=== PATIENT | female | born 1985 | race Caucasian/White ===

== ENCOUNTER 2017-07-27 17:51 | Emergency (ER) | payer MEDICAID, SELFPAY ==
[2017-07-27 17:52] VITALS: BP 120/85; PULSE 127; RESP 16; TEMP 36.9; O2SAT 98; BMI 41.1
--- NOTE | 2017-07-27 18:24 | CT_ITS ---
STUDY: CT ABDOMEN AND PELVIS WITH CONTRAST REASON FOR EXAM: Female, 31 years old. Left upper quadrant pain RADIATION DOSAGE (If Supplied By Facility): CTDIvol = ( 15.41 ) mGy, DLP = ( 1223.49 ) mGycm TECHNIQUE: Transaxial images were obtained from the dome of the diaphragm to the symphysis pubis without oral contrast. 100 ml of Isovue 300 contrast was administered. Sagittal and coronal images were reconstructed. Individualized dose optimization techniques were used for this CT. COMPARISON: May 01, 2015 FINDINGS: There is a tiny left pleural effusion and left lower lobe atelectasis. The visualized portions of the heart are within normal limits. Liver is mildly fatty infiltrated without mass or bile duct dilatation. Gallbladder not visualized consistent with cholecystectomy. Spleen is enlarged and homogeneous attenuation . There is mild peripancreatic edema in association with a pseudocyst in the tail of the pancreas measuring 4.65 x 3.08 x 3.94 cm. Normal bilateral adrenal glands. Normal right kidney. Normal left kidney. Normal visualized stomach. Normal small intestine. Normal colon. The appendix is visualized and appears normal. Normal abdominal aorta. Normal inferior vena cava. Normal retroperitoneum. Incompletely distended diffusely thick-walled bladder likely of no significance. There are cystic changes within the adnexa bilaterally not atypical for age Normal abdominal wall. Normal osseous structures. CT/Abdomen/Pelvis W IV Cont ONLY IMPRESSION: Findings consistent with acute pancreatitis and pseudocyst in the tail of the pancreas measuring approximately 4.65 x 3.08 x 3.94 cm Nonspecific fatty infiltration of the liver and splenomegaly. Status post cholecystectomy Electronically Signed: Dario Reece MD at 20:01 EDT , Service support ,
[2017-07-27] MEDS: Ketorolac 30 MG/ML Syringe IV (18:48)
[2017-07-27] MEDS: 0.9% Normal Saline 1,000 ML 1000 ML IV (18:48)
[2017-07-27] MEDS: Ondansetron 4 MG/2 ML Vial IV (18:50)
[2017-07-27 18:55] VITALS: RESP 18; O2SAT 98
[2017-07-27 19:07] LABS: ALB/GLOB Ratio 0.8 RATIO (0.9-2.4); AST(SGOT) 10 U/L (15-37); Alanine Aminotransfer ALT/SGPT 12 U/L (13-56); Albumin, Serum 3.4 g/dL (3.2-5.0); Alkaline Phosphatase 63 U/L (45-117); Anion Gap 9 (5-15); BUN 7 mg/dL (7-18); BUN/Creat Ratio 10.7 RATIO (10-20); Chloride 104 mmol/L (98-107); Creatinine, Serum 0.66 mg/dL (0.55-1.02); EST Glomerular Filtration Rate 111 mL/min (>60); Est Glom Filt Rate - Afr Amer 134 mL/min (>60); Estimated Creatinine Clearance 111.13 ml/min; Globulin 4.4 g/dL (2.2-4.2); Glucose 80 mg/dL (74-106); Lipase 355 U/L (73-393); Potassium 3.7 mmol/L (3.5-5.1); Protein, Total 7.8 g/dL (6.4-8.2); Sodium Level 138 mmol/L (136-145)
[2017-07-27 19:10] LABS: Absolute Lymphocyte Count 1.38 X10^3/ul (0.83-4.51); Absolute Neutrophil Count 6.4 X10^3/uL (2.0-7.7); Basophil# 0.01 X10^3/uL; Basophil% 0.1 % (0-1); Eosinophil# 0.05 X10^3/uL; Eosinophils% 0.6 % (0-5); Hematocrit 38.6 % (37-47); Hemoglobin 12.5 g/dl (12.0-15.0); Lymphocyte # 1.38 X10^3/ul (4.0); Lymphocyte % 16.7 % (19-41); Mean Corp Hgb Conc 32.4 g/gl (32-36); Mean Corpuscular Hgb 28.8 pg (27.0-32.0); Mean Corpuscular Volume 88.9 fL (81-99); Mean Platelet Vol. 10.3 fl (6.2-12.0); Monocyte# 0.43 X10^3/uL; Monocyte% 5.2 % (0-10); Neutrophil # 6.39 X10^3/uL (2.7-7.7); Neutrophil % 77.3 % (47-70); Platelet Count 139 K/mm3 (150-450); RBC Distribution Width CV 13.2 % (11.6-14.6); RBC Distribution Width SD 43.2 fl (35.1-43.9); Red Blood Count 4.34 M/mm3 (4.2-5.4); White Blood Count 8.3 K/mm3 (4.4-11.0)
[2017-07-27 19:16] LABS: POSITIVE COUNT NO; POSITIVE DIFFERENTIAL NO; POSITIVE MORPHOLOGY NO
--- NOTE | 2017-07-27 19:22 | NURSING ---
PT STATED THAT SHE IS 100% NOT AND WAS OKAY TO GO DOWN AND GET A CAT SCAN. CLEARED BY THE DOCTOR.
--- NOTE | 2017-07-27 20:39 | ED.DCSUM_ITS ---
- ER Visit Summary Date of Service: 07/27/17 Chief Complaint: Abdominal pain History of Present Illness: The patient is a 31 F who complains of moderate sharp left upper quadrant abdominal pain that is been present for about 5 days. 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 She has had a cholecystectomy. She developed pancreatic pseudocyst which she has had drained on a couple of occasions. She last had any procedure imaging last year. She denies any vomiting but does have some nausea. She had 2 episodes of loose stool. She denies fevers. Physical Examination: Initial heart rate 127 vitals otherwise unremarkable Patient resting comfortably and does not appear to be in any distress Moist mucous membranes Heart regular rhythm slightly tachycardic at the time of initial exam Lungs are clear Abdomen soft nondistended with mild left upper quadrant tenderness no guarding no rebound Test Results: CBC CMP lipase all unremarkable. CT of the abdomen and pelvis showed mild peripancreatic edema suggestive of acute pancreatitis as well as a pseudocyst measuring 4.65 x 3.08 x 3.94 centimeters. Emergency Department Course and Treatment: Patient was treated with IV fluids Toradol and Zofran. She is resting comfortably on reevaluation. Although there was some mild lee-pancreatic edema she has normal lipase she is afebrile no white count and her heart rate is normal on reevaluation. She has no vomiting. I do not believe she requires admission at this time. I do believe she can be discharged to follow-up with gastroenterology as an outpatient. 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 Treatment Plan: [] Disposition: Discharge Impression: Abdominal pain Pancreatic pseudocyst This note was generated with [employer]To[employer] dictation software. It may contain incorrect words, spelling, and punctuation that were not noted in review of the chart prior to signing ED Disposition - Plan for ED Patient: Chief Complaint: Abd Pain Referrals: Care Physician,No Primary [Primary Care Provider] -
--- NOTE | 2017-07-27 21:03 | ED.DEP ---
ED Disposition - Plan for ED Patient: Chief Complaint: Abd Pain Instructions: ED Pancreatitis Prescriptions: Hydrocodone/Acetaminophen [[place] 5-325 Tablet] 1 - 2 ea PO 4X/DAY PRN PRN 3 Days #12 tab PRN Reason: Pain Referrals: Care Physician,No Primary [Primary Care Provider] -
[2017-07-27 21:12] VITALS: PULSE 122; RESP 16; O2SAT 99
== END 2017-07-27 21:14 | disposition home or self-care (01) ==
LOC: ED 18:36
PROVIDERS: Emergency Provider Emergency Medicine
DX: K86.3 Pseudocyst of pancreas (principal); Z90.49 Acquired absence of other specified parts of digestive tract; Z72.0 Tobacco use
CPT/HCPCS: 74177; 80053; 83690; 85025; 96361; 96374; 96375; 99283; J7030; Q9967; A4216; J2405

== ENCOUNTER 2018-03-25 04:48 | Inpatient (IN) | payer MEDICAID, SELFPAY ==
[2018-03-25 04:49] VITALS: BP 141/100; PULSE 73; RESP 20; TEMP 36.5; O2SAT 97; BMI 37.4
[2018-03-25 05:16] LABS: Absolute Lymphocyte Count 2.08 X10^3/ul (0.83-4.51); Absolute Neutrophil Count 9.2 X10^3/uL (2.0-7.7); Anion Gap 9 (5-15); BUN 10 mg/dL (7-18); BUN/Creat Ratio 14.6 RATIO (10-20); Basophil# 0.02 X10^3/uL; Basophil% 0.2 % (0-1); Calcium,Total 8.8 mg/dL (8.5-10.1); Chloride 107 mmol/L (98-107); Creatinine, Serum 0.69 mg/dL (0.55-1.02); EST Glomerular Filtration Rate 105 mL/min (>60); Eosinophil# 0.26 X10^3/uL; Eosinophils% 2.1 % (0-5); Est Glom Filt Rate - Afr Amer 127 mL/min (>60); Estimated Creatinine Clearance 105.33 ml/min; Glucose 85 mg/dL (74-106); Hematocrit 42.6 % (37-47); Hemoglobin 14.5 g/dl (12.0-15.0); Lymphocyte # 2.08 X10^3/ul (4.0); Mean Corpuscular Hgb 30.7 pg (27.0-32.0); Mean Corpuscular Volume 90.3 fL (81-99); Mean Platelet Vol. 10.3 fl (6.2-12.0); Monocyte% 5.7 % (0-10); Neutrophil # 9.19 X10^3/uL (2.7-7.7); Neutrophil % 74.8 % (47-70); Platelet Count 142 K/mm3 (150-450); Potassium 3.1 mmol/L (3.5-5.1); RBC Distribution Width CV 13.3 % (11.6-14.6); RBC Distribution Width SD 44.3 fl (35.1-43.9); Red Blood Count 4.72 M/mm3 (4.2-5.4); Sodium Level 142 mmol/L (136-145); White Blood Count 12.3 K/mm3 (4.4-11.0)
[2018-03-25 05:35] LABS: POSITIVE COUNT NO; POSITIVE DIFFERENTIAL NO; POSITIVE MORPHOLOGY NO; Pregnancy, Serum, hCG Quali. NEGATIVE Negative (0-9 Nonpreg)
--- NOTE | 2018-03-25 05:41 | ED.DCSUM_ITS ---
History of Present Illness Chief Complaint: Abd Pain Informant: Patient Onset: Today, Hours - 2 Context: Sudden Onset - woke her up from sleep Timing: Continuous Quality: ache, deep boring pain Location: epigastric, with radiation straight through to low back Current Severity: Severe Maximum Severity: Severe Worsened by: nothing Relieved by: nothing Associated Symptoms: n/v Narrative: Awoke with pain similar to prior episodes of acute pancreatitis. Has a history of gallstone pancreatitis for which she had pancreatic ductal stents placed and a cholecystectomy remotely. She does not get this pain very often, she does not have chronic daily pain. Occasionally gets some discomfort, she does not frequently come to the emergency department for that, but states this pain is much more severe, prompting her visit this morning. She denies drinking any alcohol in the past 2 years since her diagnosis. No recent illnesses or injuries. 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 Smoking Status: Current every day smoker Drugs: None - Family History Maternal Family History: Reports: No pertinent history Review of Systems General: Denies: Chills, Fever, Sweats Eyes: Denies: Visual changes - bilaterally, Diplopia ENT: Denies: Rhinorrhea, Sore throat Cardiovascular: Denies: Chest pain, Palpitations Respiratory: Denies: Dyspnea, Cough, Dyspnea on exertion Gastrointestinal: Reports: Abdominal pain, Nausea, Vomiting - Without hematemesis. Denies: Diarrhea, Melena, Hematochezia Genitourinary: Denies: Dysuria, Hematuria, Frequency Musculoskeletal: Reports: Back pain. Denies: Neck pain, Swelling, Extremity Pain Skin: Denies: Rash, Wounds Neurological: Denies: Headache, Weakness, Numbness Psych: Denies: Depression, Anxiety Endocrine: Denies: Polyuria, Polydipsia Hematologic: Denies: Easy bruising, Easy bleeding Allergy: Denies: Swelling of the mouth, Swelling of the tongue Physical Exam Vital Signs/Narrative: Vital Signs Temp Pulse Resp BP Pulse Ox 03/25/18 04:49 97.7 F L 73 20 H 141/100 H 97 Inital Vital Signs reviewed: Yes General: Well nourished, Well developed, Obese, - - NAD Head: Normocephalic, Atraumatic Eyes: Perrl, EOMI ENT: Moist mucous membranes, No rhinorrhea Neck: Supple, Nontender Cardiovascular: Regular rate, Regular rhythm, No murmurs Respiratory: No distress, CTA bilaterally, Chest nontender Abdomen: Soft, Nondistended, Tender - Moderately tender throughout upper abdomen, the rest of her abdomen is benign, Hypoactive bowel sounds. Negative for: Guarding, Rebound tenderness Back: Nontender, Normal Inspection. Negative for: CVA tenderness Extremities: Nontender, No edema Skin: Normal color, No rash Neurological: Alert, Oriented x3, Cranial nerves II-XII grossly intact, Normal Strength, Normal Sensation Psychological: Normal affect Diagnostic/Tx/Re-eval Laboratory Results 03/25/18 03/25/18 03/25/18 04:55 04:55 04:55 WBC 12.3 H RBC 4.72 Hgb 14.5 Hct 42.6 MCV 90.3 MCH 30.7 MCHC 34.0 RDW 13.3 RDW Differential 44.3 H Plt Count 142 L MPV 10.3 Immature Gran % (Auto) 0.200 Neut % (Auto) 74.8 H Lymph % (Auto) 17.0 L [place] % (Auto) 5.7 Eos % (Auto) 2.1 Baso % (Auto) 0.2 Absolute Neuts (auto) 9.2 H Absolute Lymphs (auto) 2.08 Total Counted Not Reportable Sodium 142 Potassium 3.1 L Chloride 107 Carbon Dioxide 26.0 Anion Gap 9 BUN 10 Creatinine 0.69 Estim Creat Clear Calc 105.33 Est GFR (MDRD) Af Amer 127 Est GFR (MDRD) Non-Af 105 BUN/Creatinine Ratio 14.6 Glucose 85 Calcium 8.8 Total Bilirubin Direct Bilirubin AST ALT Alkaline Phosphatase Total Protein Albumin Globulin Lipase Serum , Qual NEGATIVE Urine Color Urine Clarity Urine pH Ur Specific [place] Urine Protein Urine Glucose (UA) Urine Ketones Urine Occult Blood Urine Nitrite Urine Bilirubin Urine Urobilinogen Ur Leukocyte Esterase Urine RBC Urine WBC Ur Squamous Epith Cells Urine Bacteria Urine Mucus 03/25/18 03/25/18 04:55 06:30 WBC RBC Hgb Hct MCV MCH MCHC RDW RDW Differential Plt Count MPV Immature Gran % (Auto) Neut % (Auto) Lymph % (Auto) [place] % (Auto) Eos % (Auto) Baso % (Auto) Absolute Neuts (auto) Absolute Lymphs (auto) Total Counted Sodium Potassium Chloride Carbon Dioxide Anion Gap BUN Creatinine Estim Creat Clear Calc Est GFR (MDRD) Af Amer Est GFR (MDRD) Non-Af BUN/Creatinine Ratio Glucose Calcium Total Bilirubin 0.40 Direct Bilirubin 0.12 AST 16 ALT 18 Alkaline Phosphatase 55 Total Protein 8.0 Albumin 4.0 Globulin 4.0 Lipase 85724 H Serum , Qual Urine Color Yellow Urine Clarity Sl. Cloudy Urine pH 5.0 Ur Specific [place] 1.020 Urine Protein 15 H Urine Glucose (UA) Normal Urine Ketones 15 H Urine Occult Blood 10 H Urine Nitrite Negative Urine Bilirubin Negative Urine Urobilinogen Normal Ur Leukocyte Esterase 500 H Urine RBC 0 SEEN Urine WBC 5-10 SEEN Ur Squamous Epith Cells > 100 SEEN Urine Bacteria 0 SEEN Urine Mucus 1+ - Medical Decision Making This patient does not have many ED visits, and seems reasonable, so treated initially with IV fluids, morphine, Toradol, Zofran. Workup is consistent with acute pancreatitis with a very high lipase. She feels better on reevaluation. 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 I think she is stable to be admitted here for bowel rest and further treatment. ED Disposition - Plan for ED Patient: Disposition: [facility] Chief Complaint: Abd Pain Diagnosis: Acute pancreatitis Referrals: Care Physician,No Primary [Primary Care Provider] -
[2018-03-25] MEDS: Ondansetron 4 MG/2 ML Vial IV ×2 (05:46→23:22)
[2018-03-25] MEDS: Ketorolac 30 MG/ML Syringe IV (05:46)
[2018-03-25] MEDS: Morphine 4 MG/ML Syringe IV ×5 (05:47→23:22)
[2018-03-25 06:43] LABS: AST(SGOT) 16 U/L (15-37); Alanine Aminotransfer ALT/SGPT 18 U/L (13-56); Alkaline Phosphatase 55 U/L (45-117); Bilirubin, Direct 0.12 mg/dL (0.00-0.30); Lipase 26469 U/L (73-393)
[2018-03-25 06:46] LABS: Red Blood Cells-Urine 0 SEEN /hpf (0-5)
[2018-03-25 06:52] LABS: Color, Urine Yellow (Yellow); Glucose, Dipstick Normal (Normal); Ketone-Dipstick 15 mg/dl (Negative); Leukocyte Esterase-Dipstick 500 /ul (Negative); Nitrite-Dipstick Negative (Negative); Occult Blood-Urine 10 /ul (Negative); Protein-Dipstick 15 mg/dl (Negative); Urine Bilirubin Dipstick Negative (Negative); Urine Clarity Sl. Cloudy (Clear); Urine Urobilinogen Normal (Normal)
[2018-03-25 06:56] LABS: Bacteria 0 SEEN /hpf (None Seen); Mucous, Urine 1+ /hpf (<or=2+); White Blood Cells 5-10 SEEN /hpf (0-5)
[2018-03-25 06:57] LABS: Squamous Epithelial Cells - UA > 100 SEEN /hpf (5-10)
[2018-03-25] MEDS: 0.9% Normal Saline 1,000 ML 150 ML IV (07:15)
[2018-03-25 07:40] VITALS: BP 121/69; PULSE 74; RESP 16; O2SAT 99
--- NOTE | 2018-03-25 07:53 | PCM.HP.STD ---
Problem List (1) Abdominal pain Status: Acute Qualifiers: Abdominal location: epigastric Qualified Code(s): R10.13 - Epigastric pain History of Present Illness Date of Admission: 03/25/18 Chief Complaint: Epigastric abdominal pain The patient is a 32 year old F who was seen in the emergency room at [facility] with chief complaint of epigastric abdominal pain which began at 3 AM this morning. Patient has had a history of pancreatitis in the past secondary to gallstones, she underwent a cholecystectomy and stent placements in the common bile duct according to the patient. Patient denies any alcohol use, she denies any vomiting but she has had some nausea. Patient denies any chest pain or shortness of breath. Evaluation in the emergency room included labs which showed an elevated white blood cell count 12.3, chemistry profile was remarkable for potassium of 3.1, lipase was 96,469. Patient was given IV analgesics in the emergency room along with fluids and antiemetics, she will be admitted to [facility] for acute recurrent pancreatitis. Past Medical History Past Medical History (Chronic Problems): Chronic Problems Pancreatic pseudocyst (Chronic) Pancreatitis due to common bile duct stone (Chronic) Obesity (Chronic) Allergies No Known Allergies Allergy (Verified 03/25/18 04:51) Home Medications: Ambulatory Orders Medication Instructions Recorded Hydrocodone/Acetaminophen [[place] 1 - 2 ea PO 4X/DAY PRN PRN 3 Days 07/27/17 5-325 Tablet] #12 tab Surgical History: cholecystectomy, - - ercp with stent, and then stent removal. 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 [employer] history Lives: Spouse/ Significant Other Smoking Status: Current every day smoker Tobacco Use: Cigarettes Alcohol: None Drugs: None - *Family History Maternal History Items: No pertinent history Paternal History Items: No pertinent history Review of Systems Constitutional: Denies: Anorexia, Chills, Fever, Night Sweats, Malaise, Weakness, Weight Change, Fatigue Eyes: Denies: Cataracts, Conjunctivae Inflammation, Eyelid Inflammation, Pain HEENT: Denies: Dysphasia, Ear Pain, Eye Pain, Head Aches, Hearing Changes, Nasal bleeding, Nasal Congestion Cardiovascular: Denies: Chest Pain, Claudication, Chest Pressure, Chest Tightness, Edema, Palpitations Respiratory: Denies: Cough, Hemoptysis, Pleuritic Pain, Shortness of Breath, Shortness of breath at rest, Shortness of breath upon exertion Gastrointestinal: Reports: Abdominal Pain, Nausea. Denies: Constipation, Diarrhea, Hematemesis, Hematochezia, Melena, Vomiting Genitourinary: Denies: Dysuria, Frequency, Hematuria, Hesitancy, Urgency Gynecological: Denies: Breast symptoms Musculoskeletal: Denies: Back Pain, Foot Pain, Hand Pain, Joint Pain, Joint stiffness, Joint swelling, Joint Tenderness, Leg Pain Skin: Denies: Dryness, Jaundice, Pruritis, Rash, Wounds Neurological: Denies: Blurred vision, Double vision, Slurred speech, Difficulty swallowing, Focal weakness, Headaches, Incoordination, Numbness, Tingling Psychiatric: Denies: Anxiety, Depression, Homicidal Ideations, Suicidal Ideations Endocrine: Denies: Change in Body Habitus, Heat/ Cold Intolerance, Polydipsia, Polyuria Hematologic/ Lymphatic: Denies: Adenopathy, Anemia, Easy Bruising, Easy Bleeding, Petechiae, Purpura VTE Information - Inpt Only VTE Present on Admission: No VTE Mechan Device Prophylaxis: None VTE Pharm Prophylaxis ordered?: No Reason prophylaxis not ordered:: Treatment Not Indicated - low risk for VTE Patient Problems: Active and Suspected Problems Acute pancreatitis (Acute) - Physical Exam General: Alert, Oriented x3, Cooperative, No apparent distress, Well developed, Well nourished HEENT: Atraumatic, PERRLA, EOMI, Normocephalic Oral: Moist Mucosa Neck: Supple, No JVD, Negative Carotid Bruits, No Nuchal Rigidity, Trachea Midline, Thyroid Normal Size and Texture Lungs: Clear to auscultation, Normal air movement, No rhonchi, No wheeze, No rales Cardiovascular: Regular rate, Regular Rhythm, Normal S1, Normal S2, No murmurs, No Ectopic Activity, PMI Normal, No rub noted, No Gallop Abdomen: Bowel Sounds Present, Soft, Non-Distended, Hypoactive Bowel Sounds, Tender - Generalized abdominal tenderness is noted over the epigastric region in the upper abdomen, no rebound abdominal tenderness was noted Extremities: No clubbing, No cyanosis, No edema, Capillary Refill Less than 3 Seconds Skin: No rashes, No breakdown Musculoskeletal: No Tenderness to Palpation of Joints or Extremities Neurological: Cranial nerves II-XII grossly intact, Neuro grossly intact, Sensory exam intact to light touch and pain, Coordination normal Psych/Mental Status: Normal Affect, Appropriate, Alert and oriented to time, place, person, mood and affect Vital Signs Temp Pulse Resp BP Pulse Ox 97.7 F L 74 16 121/69 H 99 03/25/18 04:49 03/25/18 07:40 03/25/18 07:40 03/25/18 07:40 03/25/18 07:40 Oxygen Delivery Method Room Air Weight: 102.058 kg Body Mass Index (BMI) 37.4 Laboratory Tests Past 24 Hrs 03/25/18 03/25/18 03/25/18 04:55 04:55 04:55 WBC 12.3 H RBC 4.72 Hgb 14.5 Hct 42.6 MCV 90.3 MCH 30.7 MCHC 34.0 RDW 13.3 RDW Differential 44.3 H Plt Count 142 L MPV 10.3 Immature Gran % (Auto) 0.200 Neut % (Auto) 74.8 H Lymph % (Auto) 17.0 L [place] % (Auto) 5.7 Eos % (Auto) 2.1 Baso % (Auto) 0.2 Absolute Neuts (auto) 9.2 H Absolute Lymphs (auto) 2.08 Total Counted Not Reportable Sodium 142 Potassium 3.1 L Chloride 107 Carbon Dioxide 26.0 Anion Gap 9 BUN 10 Creatinine 0.69 Estim Creat Clear Calc 105.33 Est GFR (MDRD) Af Amer 127 Est GFR (MDRD) Non-Af 105 BUN/Creatinine Ratio 14.6 Glucose 85 Calcium 8.8 Total Bilirubin Direct Bilirubin AST ALT Alkaline Phosphatase Total Protein Albumin Globulin Lipase Serum , Qual NEGATIVE Urine Color Urine Clarity Urine pH Ur Specific [place] Urine Protein Urine Glucose (UA) Urine Ketones Urine Occult Blood Urine Nitrite Urine Bilirubin Urine Urobilinogen Ur Leukocyte Esterase Urine RBC Urine WBC Ur Squamous Epith Cells Urine Bacteria Urine Mucus 03/25/18 03/25/18 04:55 06:30 WBC RBC Hgb Hct MCV MCH MCHC RDW RDW Differential Plt Count MPV Immature Gran % (Auto) Neut % (Auto) Lymph % (Auto) [place] % (Auto) Eos % (Auto) Baso % (Auto) Absolute Neuts (auto) Absolute Lymphs (auto) Total Counted Sodium Potassium Chloride Carbon Dioxide Anion Gap BUN Creatinine Estim Creat Clear Calc Est GFR (MDRD) Af Amer Est GFR (MDRD) Non-Af BUN/Creatinine Ratio Glucose Calcium Total Bilirubin 0.40 Direct Bilirubin 0.12 AST 16 ALT 18 Alkaline Phosphatase 55 Total Protein 8.0 Albumin 4.0 Globulin 4.0 Lipase 66526 H Serum , Qual Urine Color Yellow Urine Clarity Sl. Cloudy Urine pH 5.0 Ur Specific [place] 1.020 Urine Protein 15 H Urine Glucose (UA) Normal Urine Ketones 15 H Urine Occult Blood 10 H Urine Nitrite Negative Urine Bilirubin Negative Urine Urobilinogen Normal Ur Leukocyte Esterase 500 H Urine RBC 0 SEEN Urine WBC 5-10 SEEN Ur Squamous Epith Cells > 100 SEEN Urine Bacteria 0 SEEN Urine Mucus 1+ Assessment/Plan All Active Problems Acute pancreatitis (Acute) Pancreatic cyst (Resolved) Gall stones (Resolved) Acute respiratory failure with hypoxia (Resolved) Ileus following gastrointestinal surgery (Resolved) Pancreatitis (Acute) Abdominal pain (Acute) #1 acute recurrent pancreatitis-patient will be admitted to the medical floor, IV fluids will be administered, IV analgesics and antiemetics will be administered, labs will be monitored. I do not believe the patient needs any imaging studies at this time. #2 hypokalemia-patient will receive IV potassium, labs will be checked tomorrow #3 leukocytosis-labs will be rechecked tomorrow Code Visit Inpatient E&M: 69323 Init Hosp L3
--- NOTE | 2018-03-25 07:57 | HP.PCM_ITS ---
Problem List (1) Abdominal pain Status: Acute Qualifiers: Abdominal location: epigastric Qualified Code(s): R10.13 - Epigastric pain History of Present Illness Date of Admission: 03/25/18 Chief Complaint: Epigastric abdominal pain The patient is a 32 year old F who was seen in the emergency room at [facility] with chief complaint of epigastric abdominal pain which began at 3 AM this morning. Patient has had a history of pancreatitis in the past secondary to gallstones, she underwent a cholecystectomy and stent placements in the common bile duct according to the patient. Patient denies any alcohol use, she denies any vomiting but she has had some nausea. Patient denies any chest pain or shortness of breath. Evaluation in the emergency room included labs which showed an elevated white blood cell count 12.3, chemistry profile was remarkable for potassium of 3.1, lipase was 96,469. Patient was given IV analgesics in the emergency room along with fluids and antiemetics, she will be admitted to [facility] for acute recurrent pancreatitis. Past Medical History Past Medical History (Chronic Problems): Chronic Problems Pancreatic pseudocyst (Chronic) Pancreatitis due to common bile duct stone (Chronic) Obesity (Chronic) Allergies No Known Allergies Allergy (Verified 03/25/18 04:51) Home Medications: Ambulatory Orders Medication Instructions Recorded Hydrocodone/Acetaminophen [[place] 1 - 2 ea PO 4X/DAY PRN PRN 3 Days 07/27/17 5-325 Tablet] #12 tab Surgical History: cholecystectomy, - - ercp with stent, and then stent removal. 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 Lives: Spouse/ Significant Other Smoking Status: Current every day smoker Tobacco Use: Cigarettes Alcohol: None Drugs: None - *Family History Maternal History Items: No pertinent history Paternal History Items: No pertinent history Review of Systems Constitutional: Denies: Anorexia, Chills, Fever, Night Sweats, Malaise, Weakness, Weight Change, Fatigue Eyes: Denies: Cataracts, Conjunctivae Inflammation, Eyelid Inflammation, Pain HEENT: Denies: Dysphasia, Ear Pain, Eye Pain, Head Aches, Hearing Changes, Nasal bleeding, Nasal Congestion Cardiovascular: Denies: Chest Pain, Claudication, Chest Pressure, Chest Tightness, Edema, Palpitations Respiratory: Denies: Cough, Hemoptysis, Pleuritic Pain, Shortness of Breath, Shortness of breath at rest, Shortness of breath upon exertion Gastrointestinal: Reports: Abdominal Pain, Nausea. Denies: Constipation, Diarrhea, Hematemesis, Hematochezia, Melena, Vomiting Genitourinary: Denies: Dysuria, Frequency, Hematuria, Hesitancy, Urgency Gynecological: Denies: Breast symptoms Musculoskeletal: Denies: Back Pain, Foot Pain, Hand Pain, Joint Pain, Joint st iffness, Joint swelling, Joint Tenderness, Leg Pain Skin: Denies: Dryness, Jaundice, Pruritis, Rash, Wounds Neurological: Denies: Blurred vision, Double vision, Slurred speech, Difficulty swallowing, Focal weakness, Headaches, Incoordination, Numbness, Tingling Psychiatric: Denies: Anxiety, Depression, Homicidal Ideations, Suicidal Ideations Endocrine: Denies: Change in Body Habitus, Heat/ Cold Intolerance, Polydipsia, Polyuria Hematologic/ Lymphatic: Denies: Adenopathy, Anemia, Easy Bruising, Easy Bleeding, Petechiae, Purpura VTE Information - Inpt Only VTE Present on Admission: No VTE Mechan Device Prophylaxis: None VTE Pharm Prophylaxis ordered?: No Reason prophylaxis not ordered:: Treatment Not Indicated - low risk for VTE Patient Problems: Active and Suspected Problems Acute pancreatitis (Acute) - Physical Exam General: Alert, Oriented x3, Cooperative, No apparent distress, Well developed, Well nourished HEENT: Atraumatic, PERRLA, EOMI, Normocephalic Oral: Moist Mucosa Neck: Supple, No JVD, Negative Carotid Bruits, No Nuchal Rigidity, Trachea Midline, Thyroid Normal Size and Texture Lungs: Clear to auscultation, Normal air movement, No rhonchi, No wheeze, No rales Cardiovascular: Regular rate, Regular Rhythm, Normal S1, Normal S2, No murmurs, No Ectopic Activity, PMI Normal, No rub noted, No Gallop Abdomen: Bowel Sounds Present, Soft, Non-Distended, Hypoactive Bowel Sounds, Tender - Generalized abdominal tenderness is noted over the epigastric region in the upper abdomen, no rebound abdominal tenderness was noted Extremities: No clubbing, No cyanosis, No edema, Capillary Refill Less than 3 Seconds Skin: No rashes, No breakdown Musculoskeletal: No Tenderness to Palpation of Joints or Extremities Neurological: Cranial nerves II-XII grossly intact, Neuro grossly intact, Sensory exam intact to light touch and pain, Coordination normal Psych/Mental Status: Normal Affect, Appropriate, Alert and oriented to time, place, person, mood and affect Vital Signs Temp Pulse Resp BP Pulse Ox 97.7 F L 74 16 121/69 H 99 03/25/18 04:49 03/25/18 07:40 03/25/18 07:40 03/25/18 07:40 03/25/18 07:40 Oxygen Delivery Method Room Air Weight: 102.058 kg Body Mass Index (BMI) 37.4 Laboratory Tests Past 24 Hrs 03/25/18 03/25/18 03/25/18 04:55 04:55 04:55 WBC 12.3 H RBC 4.72 Hgb 14.5 Hct 42.6 MCV 90.3 MCH 30.7 MCHC 34.0 RDW 13.3 RDW Differential 44.3 H Plt Count 142 L MPV 10.3 Immature Gran % (Auto) 0.200 Neut % (Auto) 74.8 H Lymph % (Auto) 17.0 L [place] % (Auto) 5.7 Eos % (Auto) 2.1 Baso % (Auto) 0.2 Absolute Neuts (auto) 9.2 H Absolute Lymphs (auto) 2.08 Total Counted Not Reportable Sodium 142 Potassium 3.1 L Chloride 107 Carbon Dioxide 26.0 Anion Gap 9 BUN 10 Creatinine 0.69 Estim Creat Clear Calc 105.33 Est GFR (MDRD) Af Amer 127 Est GFR (MDRD) Non-Af 105 BUN/Creatinine Ratio 14.6 Glucose 85 Calcium 8.8 Total Bilirubin Direct Bilirubin AST ALT Alkaline Phosphatase Total Protein Albumin Globulin Lipase Serum , Qual NEGATIVE Urine Color Urine Clarity Urine pH Ur Specific [place] Urine Protein Urine Glucose (UA) Urine Ketones Urine Occult Blood Urine Nitrite Urine Bilirubin Urine Urobilinogen Ur Leukocyte Esterase Urine RBC Urine WBC Ur Squamous Epith Cells Urine Bacteria Urine Mucus 03/25/18 03/25/18 04:55 06:30 WBC RBC Hgb Hct MCV MCH MCHC RDW RDW Differential Plt Count MPV Immature Gran % (Auto) Neut % (Auto) Lymph % (Auto) [place] % (Auto) Eos % (Auto) Baso % (Auto) Absolute Neuts (auto) Absolute Lymphs (auto) Total Counted Sodium Potassium Chloride Carbon Dioxide Anion Gap BUN Creatinine Estim Creat Clear Calc Est GFR (MDRD) Af Amer Est GFR (MDRD) Non-Af BUN/Creatinine Ratio Glucose Calcium Total Bilirubin 0.40 Direct Bilirubin 0.12 AST 16 ALT 18 Alkaline Phosphatase 55 Total Protein 8.0 Albumin 4.0 Globulin 4.0 Lipase 58621 H Serum , Qual Urine Color Yellow Urine Clarity Sl. Cloudy Urine pH 5.0 Ur Specific [place] 1.020 Urine Protein 15 H Urine Glucose (UA) Normal Urine Ketones 15 H Urine Occult Blood 10 H Urine Nitrite Negative Urine Bilirubin Negative Urine Urobilinogen Normal Ur Leukocyte Esterase 500 H Urine RBC 0 SEEN Urine WBC 5-10 SEEN Ur Squamous Epith Cells > 100 SEEN Urine Bacteria 0 SEEN Urine Mucus 1+ Assessment/Plan All Active Problems Acute pancreatitis (Acute) Pancreatic cyst (Resolved) Gall stones (Resolved) Acute respiratory failure with hypoxia (Resolved) Ileus following gastrointestinal surgery (Resolved) Pancreatitis (Acute) Abdominal pain (Acute) #1 acute recurrent pancreatitis-patient will be admitted to the medical floor, IV fluids will be administered, IV analgesics and antiemetics will be administered, labs will be monitored. I do not believe the patient needs any imaging studies at this time. #2 hypokalemia-patient will receive IV potassium, labs will be checked tomorrow #3 leukocytosis-labs will be rechecked tomorrow Code Visit Inpatient E&M: 96415 Init Hosp L3
[2018-03-25 08:33] VITALS: BMI 37.9
[2018-03-25 08:39] VITALS: BP 110/66; PULSE 77; RESP 18; TEMP 37.1; O2SAT 96
[2018-03-25] MEDS: Potassium Chloride 10mEq/100mL 10 MEQ/100 ML IV.SOLN. 100 MEQ IV BOLUS ×2 (09:16→10:40)
[2018-03-25] MEDS: 0.9% Normal Saline 1,000 ML 200 ML IV ×3 (10:41→19:58)
[2018-03-25 14:11] VITALS: BP 99/58; PULSE 77; RESP 18; TEMP 36.7; O2SAT 95
[2018-03-25 21:40] VITALS: BP 114/83; PULSE 66; RESP 16; TEMP 36.8; O2SAT 96
[2018-03-26] MEDS: 0.9% Normal Saline 1,000 ML 200 ML IV ×3 (00:48→11:00)
[2018-03-26 04:04] VITALS: BP 110/62; PULSE 68; RESP 16; TEMP 36.8; O2SAT 95
[2018-03-26] MEDS: Morphine 4 MG/ML Syringe IV ×2 (04:15→21:26)
[2018-03-26] MEDS: 0.9% NaCl Peripheral Flush Adult/Peds IV ×2 (04:15→21:26)
[2018-03-26 07:08] LABS: Absolute Lymphocyte Count 1.67 X10^3/ul (0.83-4.51); Absolute Neutrophil Count 3.7 X10^3/uL (2.0-7.7); Eosinophil# 0.16 X10^3/uL; Eosinophils% 2.8 % (0-5); Hematocrit 34.6 % (37-47); Hemoglobin 11.2 g/dl (12.0-15.0); Lymphocyte # 1.67 X10^3/ul (4.0); Mean Corp Hgb Conc 32.4 g/gl (32-36); Mean Corpuscular Hgb 29.5 pg (27.0-32.0); Mean Corpuscular Volume 91.1 fL (81-99); Mean Platelet Vol. 10.4 fl (6.2-12.0); Monocyte# 0.26 X10^3/uL; Monocyte% 4.5 % (0-10); Neutrophil # 3.66 X10^3/uL (2.7-7.7); Neutrophil % 63.5 % (47-70); Platelet Count 104 K/mm3 (150-450); RBC Distribution Width CV 13.5 % (11.6-14.6); RBC Distribution Width SD 44.3 fl (35.1-43.9); White Blood Count 5.8 K/mm3 (4.4-11.0)
[2018-03-26 07:15] LABS: POSITIVE COUNT NO; POSITIVE DIFFERENTIAL NO; POSITIVE MORPHOLOGY NO
[2018-03-26 07:42] LABS: ALB/GLOB Ratio 0.9 RATIO (0.9-2.4); AST(SGOT) 15 U/L (15-37); Alanine Aminotransfer ALT/SGPT 15 U/L (13-56); Albumin, Serum 2.7 g/dL (3.2-5.0); Alkaline Phosphatase 40 U/L (45-117); Anion Gap 8 (5-15); BUN 4 mg/dL (7-18); BUN/Creat Ratio 8.3 RATIO (10-20); Calcium,Total 7.6 mg/dL (8.5-10.1); Chloride 113 mmol/L (98-107); Creatinine, Serum 0.48 mg/dL (0.55-1.02); EST Glomerular Filtration Rate 158 mL/min (>60); Est Glom Filt Rate - Afr Amer 191 mL/min (>60); Estimated Creatinine Clearance 151.41 ml/min; Globulin 2.9 g/dL (2.2-4.2); Glucose 78 mg/dL (74-106); Lipase 1906 U/L (73-393); Potassium 3.7 mmol/L (3.5-5.1); Protein, Total 5.6 g/dL (6.4-8.2); Sodium Level 143 mmol/L (136-145)
[2018-03-26 10:04] VITALS: BP 131/78; PULSE 64; RESP 16; TEMP 37.1; O2SAT 96
--- NOTE | 2018-03-26 14:32 | PCM.PROGNOTE ---
Patient Problems: Active and Suspected Problems Acute pancreatitis (Acute) Subjective: Patient was seen and examined today, her white blood cell count today was 5.8, she has very little abdominal tenderness today. Patient's liver functions remain normal, her lipase this morning was 1906. Patient has remained afebrile. - Physical Exam General: Alert, Oriented x3, Cooperative, No apparent distress, Well developed, Well nourished HEENT: Atraumatic, PERRLA, EOMI, Normocephalic Oral: Moist Mucosa Neck: Supple, No Nuchal Rigidity, Trachea Midline, Thyroid Normal Size and Texture Lungs: Clear to auscultation, Normal air movement, No rhonchi, No wheeze, No rales Cardiovascular: Regular rate, Regular Rhythm, Normal S1, Normal S2, No murmurs, No Ectopic Activity, PMI Normal, No rub noted, No Gallop Abdomen: Bowel Sounds Present, Soft, Non-Distended, Tender - Mild mid abdominal tenderness is noted to palpation Extremities: No edema, Capillary Refill Less than 3 Seconds Skin: No rashes, No breakdown Musculoskeletal: No Tenderness to Palpation of Joints or Extremities Neurological: Cranial nerves II-XII grossly intact, Neuro grossly intact, Muscle tone normal, Sensory exam intact to light touch and pain, Coordination normal Psych/Mental Status: Normal Affect, Appropriate, Alert and oriented to time, place, person, mood and affect Vital Signs Temp Pulse Resp BP Pulse Ox 98.8 F 64 16 131/78 H 96 03/26/18 10:04 03/26/18 10:04 03/26/18 10:04 03/26/18 10:04 03/26/18 10:04 Oxygen Delivery Method Room Air Weight: 103.419 kg Body Mass Index (BMI) 37.9 Intake and Output for Last 24 Hours 03/24/18 03/25/18 03/26/18 23:59 23:59 23:59 Intake Total 1268 / 1268 3824 / 3824 Output Total 1050 / 1050 Balance 1268 / 1268 2774 / 2774 Laboratory Tests Past 24 Hrs 03/26/18 03/26/18 06:10 06:10 WBC 5.8 RBC 3.80 L Hgb 11.2 L Hct 34.6 L MCV 91.1 MCH 29.5 MCHC 32.4 RDW 13.5 RDW Differential 44.3 H Plt Count 104 L MPV 10.4 Immature Gran % (Auto) 0.200 Neut % (Auto) 63.5 Lymph % (Auto) 29.0 [place] % (Auto) 4.5 Eos % (Auto) 2.8 Baso % (Auto) 0.0 Absolute Neuts (auto) 3.7 Absolute Lymphs (auto) 1.67 Total Counted Not Reportable Sodium 143 Potassium 3.7 Chloride 113 H Carbon Dioxide 22.0 Anion Gap 8 BUN 4 L Creatinine 0.48 L Estim Creat Clear Calc 151.41 Est GFR (MDRD) Af Amer 191 Est GFR (MDRD) Non-Af 158 BUN/Creatinine Ratio 8.3 L Glucose 78 Calcium 7.6 L Total Bilirubin 0.50 AST 15 ALT 15 Alkaline Phosphatase 40 L Total Protein 5.6 L Albumin 2.7 L Globulin 2.9 Albumin/Globulin Ratio 0.9 Lipase 1906 H Medical Necessity - Tobacco Use Smoking Status: Current every day smoker Tobacco Use: Cigarettes Assessment/Plan All Active Problems Acute pancreatitis (Acute) Pancreatic cyst (Resolved) Gall stones (Resolved) Acute respiratory failure with hypoxia (Resolved) Ileus following gastrointestinal surgery (Resolved) Pancreatitis (Acute) Abdominal pain (Acute) #1 acute recurrent pancreatitis-I have decided to advance patient's diet at this time, I will put her on a clear liquid diet and decrease the patient's IV fluid rate, diet will be advanced as tolerated #2 hypokalemia-corrected #3 leukocytosis-etiology unclear, patient's white blood cell count today is normal Code Visit Inpatient E&M: 73299 Subs Hosp L2
[2018-03-26 17:13] VITALS: BP 104/61; PULSE 64; RESP 18; TEMP 36.9; O2SAT 97
[2018-03-26] MEDS: 0.9% Normal Saline 1,000 ML 125 ML IV (17:14)
[2018-03-26 21:20] VITALS: BP 141/81; PULSE 69; RESP 16; TEMP 37; O2SAT 96
[2018-03-26] MEDS: Ondansetron 4 MG/2 ML Vial IV (21:26)
[2018-03-27] MEDS: 0.9% Normal Saline 1,000 ML 125 ML IV ×2 (00:25→08:28)
[2018-03-27 02:30] VITALS: BP 108/78; PULSE 64; RESP 16; TEMP 36.9; O2SAT 98
[2018-03-27 08:30] VITALS: BP 133/86; PULSE 66; RESP 16; TEMP 36.7; O2SAT 98
--- NOTE | 2018-03-27 09:50 | CASEMGMT ---
JAIMIE ESPOSITO ASSESSMENT To room to meet with patient for initial transition planning/care coordination assessment. JAIMIE ESPOSITO introduced self and role at [facility]. Pt voices understanding and consents to assessment at this time. Pt resting in bed in no distress at this time. Pt is A/O at this time and answers all questions appropriately. Care providers, pharmacy, and demographics verified at this time. PCP: No PCP. Provided local PCP list from [employer] website. Preferred Pharmacy: [facility] on day of discharge only. Insurance: [employer] Prescription Benefit: Yes Living Will/HPOA: Does not have LW or HCPOA. Declines further information. Living Arrangements: Lives with her parents. Independent. Transportation: Pt states she does not drive and that her boyfriend provides transportation. States no transportation concerns at this time. DME/HHC: Denies using any DME and denies needs. Pt wishes to return home and states has no concerns with going home at time of discharge. CM to follow for any further discharge planning/needs. Pt voices no further concerns/needs at this time. Advised pt to ask for CM if any further questions/concerns/needs arise. Voices understanding. Plan: Home Oskar SOLO RN, CM
--- NOTE | 2018-03-27 11:51 | DCINST_ITS ---
- Discharge Diagnoses Current Active Problems: Current Active and Chronic Problems Pancreatic pseudocyst (Chronic) Acute pancreatitis (Acute) You will use the following diet at home:: No restrictions Your food should be the consistency of: Regular Your liquids should be the consistency of: Regular/Thin Discharge Activity: Return to Normal Activity Weight Bearing Status: Full weight bearing Allergies/Adverse Reactions: Allergies No Known Allergies Allergy (Verified 03/25/18 04:51) Medications to take at Discharge Hydrocodone/Acetaminophen [[place] 5-325 Tablet] 1 - 2 ea PO 4X/DAY PRN PRN 3 Days #12 tab 07/27/17 Primary Care Physician: Care Physician,No Primary [Primary Care Provider] - Please follow up with your Primary Care Physician in: in 2 weeks Test Results: Test results from this visit will be discussed in further detail at your follow- up appointment, if applicable.
[2018-03-27 12:36] VITALS: BP 130/87; PULSE 64; RESP 16; TEMP 36.8; O2SAT 98
--- NOTE | 2018-03-28 07:57 | PCM.DC.SUM ---
Discharge Date and Diagnosis Date of Admission: 03/25/18 Date of Discharge: 03/27/18 - Primary Discharge Diagnosis #1 acute recurrent pancreatitis-etiology unknown #2 hypokalemia-etiology unknown #3 leukocytosis-etiology unknown - Secondary Discharge Diagnosis Chronic Problems Pancreatic pseudocyst (Chronic) Pancreatitis due to common bile duct stone (Chronic) Obesity (Chronic) Hospital Course and Treatment Operations: cholecystecomy - laparoscopic cholecystectomy on 02/[address] Hooks, ERCP - 02/[address] Castillo. Had sphincterotomy and stone extraction Procedures: None Summary of Care Provided: The patient is a 32 year old F was seen in the emergency room at [facility] with a chief complaint of mid and upper quadrant abdominal pain. She had had a history of gallstone pancreatitis and a cholecystectomy had been performed this year. Patient denied any alcohol intake. Labs obtained in the emergency room showed an elevated lipase at 26,469, urinalysis was unremarkable, white blood cell count was slightly increased. Patient was given antiemetics and analgesics via IV in the emergency room, she was also given IV fluids, she was admitted to [place] [address] and given IV fluids, she was made n.p.o., and labs were cycled. Patient's abdominal pain improved over the next 48 hours, on 03/27/18, patient was seen and examined, she had no complaints of any abdominal pain and she was able to eat a regular diet. Physical exam: On examination she appeared in good health and spirits. Vital signs as documented. Skin warm and dry and without overt rashes. Neck without JVD. Lungs clear. Heart exam notable for regular rhythm, normal sounds and absence of murmurs, rubs or gallops. Abdomen unremarkable and without evidence of organomegaly, masses, or abdominal aortic enlargement. Extremities nonedematous. Neuro: Cranial nerves II through XII are grossly intact, no focal motor deficits were noted, sensation to light touch and pinprick is intact. Psych: Patient is alert and oriented x3, she does not appear anxious or depressed On 03/27/18, patient was seen and examined and felt to be in stable condition for discharge home - Physical Exam Vital Signs Temp Pulse Resp BP Pulse Ox 98.2 F 64 16 130/87 H 98 03/27/18 12:36 03/27/18 12:36 03/27/18 12:36 03/27/18 12:36 03/27/18 12:36 Oxygen Delivery Method Room Air Weight: 103.42 kg Body Mass Index (BMI) 37.9 Intake and Output for Last 24 Hours 03/26/18 03/27/18 03/28/18 23:59 23:59 23:59 Intake Total 3824 / 3824 3388 / 3388 Output Total 1050 / 1050 1700 / 1700 Balance 2774 / 2774 1688 / 1688 Microbiology Past 72 Hours 03/25/18 06:30 Urine Culture - Final Urine, Clean Catch Mixed Gram Positive Organisms Discharge Activity: Return to Normal Activity Weight Bearing Status: Full weight bearing Home Medications: Medications to take at Discharge Hydrocodone/Acetaminophen [[place] 5-325 Tablet] 1 - 2 ea PO 4X/DAY PRN PRN 3 Days #12 tab 07/27/17 Primary Care Physician: Care Physician,No Primary [Primary Care Provider] - Please follow up with your Primary Care Physician in: in 2 weeks Disposition: Home Minutes spent on discharge:: 32 Patient Condition:: Stable Medical Necessity - Tobacco Use Smoking Status: Current every day smoker Tobacco Use: Cigarettes Meaningful Use Info Meaningful Use Diagnoses (Choose all that apply): None applicable Code Visit Inpatient E&M: 88373 Disch Hosp
--- NOTE | 2018-03-28 08:00 | DS.PCM_ITS ---
Discharge Date and Diagnosis Date of Admission: 03/25/18 Date of Discharge: 03/27/18 - Primary Discharge Diagnosis #1 acute recurrent pancreatitis-etiology unknown #2 hypokalemia-etiology unknown #3 leukocytosis-etiology unknown - Secondary Discharge Diagnosis Chronic Problems Pancreatic pseudocyst (Chronic) Pancreatitis due to common bile duct stone (Chronic) Obesity (Chronic) Hospital Course and Treatment Operations: cholecystecomy - laparoscopic cholecystectomy on 02/[address] Hooks, ERCP - 02/[address] Castillo. Had sphincterotomy and stone extraction Procedures: None Summary of Care Provided: The patient is a 32 year old F was seen in the emergency room at [facility] with a chief complaint of mid and upper quadrant abdominal pain. She had had a history of gallstone pancreatitis and a cholecystectomy had been performed this year. Patient denied any alcohol intake. Labs obtained in the emergency room showed an elevated lipase at 26,469, urinalysis was unremarkable, white blood cell count was slightly increased. Patient was given antiemetics and analgesics via IV in the emergency room, she was also given IV fluids, she was admitted to [place] [address] and given IV fluids, she was made n.p.o., and labs were cycled. Patient's abdominal pain improved over the next 48 hours, on 03/27/18, patient was seen and examined, she had no complaints of any abdominal pain and she was able to eat a regular diet. Physical exam: On examination she appeared in good health and spirits. Vital signs as documented. Skin warm and dry and without overt rashes. Neck without JVD. Lungs clear. Heart exam notable for regular rhythm, normal sounds and absence of murmurs, rubs or gallops. Abdomen unremarkable and without evidence of organomegaly, masses, or abdominal aortic enlargement. Extremities nonedematous. Neuro: Cranial nerves II through XII are grossly intact, no focal motor deficits were noted, sensation to light touch and pinprick is intact. Psych: Patient is alert and oriented x3, she does not appear anxious or depressed On 03/27/18, patient was seen and examined and felt to be in stable condition for discharge home - Physical Exam Vital Signs Temp Pulse Resp BP Pulse Ox 98.2 F 64 16 130/87 H 98 03/27/18 12:36 03/27/18 12:36 03/27/18 12:36 03/27/18 12:36 03/27/18 12:36 Oxygen Delivery Method Room Air Weight: 103.42 kg Body Mass Index (BMI) 37.9 Intake and Output for Last 24 Hours 03/26/18 03/27/18 03/28/18 23:59 23:59 23:59 Intake Total 3824 / 3824 3388 / 3388 Output Total 1050 / 1050 1700 / 1700 Balance 2774 / 2774 1688 / 1688 Microbiology Past 72 Hours 03/25/18 06:30 Urine Culture - Final Urine, Clean Catch Mixed Gram Positive Organisms Discharge Activity: Return to Normal Activity Weight Bearing Status: Full weight bearing Home Medications: Medications to take at Discharge Hydrocodone/Acetaminophen [[place] 5-325 Tablet] 1 - 2 ea PO 4X/DAY PRN PRN 3 Days #12 tab 07/27/17 Primary Care Physician: Care Physician,No Primary [Primary Care Provider] - Please follow up with your Primary Care Physician in: in 2 weeks Disposition: Home Minutes spent on discharge:: 32 Patient Condition:: Stable Medical Necessity - Tobacco Use Smoking Status: Current every day smoker Tobacco Use: Cigarettes Meaningful Use Info Meaningful Use Diagnoses (Choose all that apply): None applicable Code Visit Inpatient E&M: 05695 Disch Hosp
== END 2018-03-27 12:45 | disposition home or self-care (01) | DRG 282 ==
LOC: ED 07:17 → MS3 08:10
PROVIDERS: Admitting Provider Internal Medicine; Emergency Provider Emergency Medicine; Visit Provider Internal Medicine
DX: K85.90 Acute pancreatitis without necrosis or infection, unspecified (principal); Z90.49 Acquired absence of other specified parts of digestive tract; F17.210 Nicotine dependence, cigarettes, uncomplicated; E87.6 Hypokalemia; E66.9 Obesity, unspecified; Z68.37 Body mass index [BMI] 37.0-37.9, adult
CPT/HCPCS: 36415; 80048; 80053; 80076; 81001; 83690; 84703; 85025; 87086; 87088; 99283; 99406; J7030; J7040; A4216; J2405